=== PATIENT | female | born 1945 | race Hispanic/Latino ===

== ENCOUNTER 2025-01-31 15:00 | Outpatient (RCR) | payer MEDICARE, BC | END 2025-02-01 | LOC: PT 15:00 | PROVIDERS: ATTEND Physician Assistant | DX: M75.101 Unspecified rotator cuff tear or rupture of right shoulder, not specified as traumatic (principal); M54.9 Dorsalgia, unspecified | CPT/HCPCS: 97139 ==

== ENCOUNTER 2025-02-19 14:48 | Outpatient (RCR) | payer MEDICARE, BC | END 2025-03-04 | LOC: PT 14:48 | PROVIDERS: ATTEND Physician Assistant | DX: M75.101 Unspecified rotator cuff tear or rupture of right shoulder, not specified as traumatic (principal) ==